=== PATIENT | male | born 1980 | race Two or more races ===

== ENCOUNTER 2023-07-23 20:14 | Emergency (ER) | payer OTHER ==
[~2023-07-23] VITALS: Ht 167.6 cm; Wt 61.0 kg
[2023-07-23] MEDS ORDERED: HYDROcodone-ACET 5/325MG TAB PO ONE (22:30)
[2023-07-23] MEDS ORDERED: MECLIZINE HCL 25 MG TAB PO ONE (22:30)
[2023-07-23] MEDS ORDERED: ONDANSETRON ODT 4 MG TAB PO ONE (22:30)
[2023-07-23] MEDS ORDERED: IBUP-1453 PO (22:32)
[2023-07-23] MEDS ORDERED: ZOFR4T PO (22:32)
[2023-07-23] MEDS ORDERED: MECL25CH85 PO (22:32)
[2023-07-24 00:15] VITALS: BP 115/82; PULSE 66; RESP 18; TEMP 97.7; O2SAT 97
== END 2023-07-24 00:32 | disposition home or self-care (01) ==
LOC: ER 20:14
DX: S52.615A Nondisplaced fracture of left ulna styloid process, initial encounter for closed fracture (principal); S00.33XA Contusion of nose, initial encounter; S00.83XA Contusion of other part of head, initial encounter; S00.531A Contusion of lip, initial encounter; S06.0X0A Concussion without loss of consciousness, initial encounter; Z79.899 Other long term (current) drug therapy; W18.09XA Striking against other object with subsequent fall, initial encounter; Y93.89 Activity, other specified; Y92.89 Other specified places as the place of occurrence of the external cause; Y99.8 Other external cause status
CPT/HCPCS: 29125; 70450; 70486; 73110